=== PATIENT | female | born 1960 | race Caucasian/White ===

== ENCOUNTER 2018-01-11 06:48 | Day surgery (SDC) | payer MEDICAID ==
[~2018-01-11] VITALS: Ht 165.1 cm; Wt 73.0 kg
[2018-01-11] MEDS ORDERED: OMEP20TA23 PO (07:25)
[2018-01-11] MEDS ORDERED: OXYB5TAB11 PO (07:25)
[2018-01-11] MEDS ORDERED: ASCO500C15 PO (07:25)
[2018-01-11] MEDS ORDERED: ATOR10TA PO (07:25)
[2018-01-11] MEDS ORDERED: MV-M1TAB19 PO (07:25)
[2018-01-11] MEDS ORDERED: SERT100T10 PO (07:25)
[2018-01-11] MEDS ORDERED: NABU750T2 PO (07:25)
[2018-01-11] MEDS ORDERED: HYDR200T84 PO (07:25)
[2018-01-11] MEDS ORDERED: CYAN1TAB41 PO (07:25)
[2018-01-11 07:51] VITALS: BP 121/66
[2018-01-11] MEDS ORDERED: normal saline 1000ml 1,000 ML IV SCH (08:57)
[2018-01-11 09:20] VITALS: BP 124/77
[2018-01-11 09:25] VITALS: BP 120/40
[2018-01-11 09:30] VITALS: BP 105/70
[2018-01-11 09:55] VITALS: BP 113/80
== END 2018-01-11 10:00 | disposition home or self-care (01) ==
LOC: SSTAY O 06:48
PROVIDERS: ATTEND Radiology Diagnostic Radiology
DX: R59.1 Generalized enlarged lymph nodes (principal); K21.9 Gastro-esophageal reflux disease without esophagitis; M06.9 Rheumatoid arthritis, unspecified; F32.9 Major depressive disorder, single episode, unspecified; Z90.710 Acquired absence of both cervix and uterus; Z88.0 Allergy status to penicillin; Z98.890 Other specified postprocedural states; Z88.8 Allergy status to other drugs, medicaments and biological substances; Z79.899 Other long term (current) drug therapy
CPT/HCPCS: 10022; 76942; J7030; 38505

== ENCOUNTER 2022-05-15 04:35 | Emergency (ER) | payer MEDICAID ==
[~2022-05-15] VITALS: Ht 160 cm; Wt 77.3 kg
[~2022-05-15 04:35] MED LIST: ASCO500C18 PO; ATOR10TA PO; CYAN1TAB41 PO; HYDR200T84 PO; MV-M1TAB19 PO; NABU-141 PO; OMEP20TA23 PO; OXYB5TAB16 PO; SERT-434 PO
[2022-05-15 07:02] VITALS: BP 132/86
[2022-05-15] MEDS ORDERED: valacyclovir 500mg tablet PO STA (07:47)
[2022-05-15] MEDS ORDERED: VALA100031 PO ×2 (07:53→08:03)
--- NOTE | 2022-05-15 08:04 | NUR ---
CONTACTED PHARMACY TO SEND PT'S MED. MED WILL BE SENT SOON POSSIBLE PER PHARMACY
== END 2022-05-15 08:35 | disposition home or self-care (01) ==
LOC: ER 04:36
DX: B02.9 Zoster without complications (principal); Z79.899 Other long term (current) drug therapy; Z88.1 Allergy status to other antibiotic agents
CPT/HCPCS: 99283